=== PATIENT | male | born 1985 | race Two or more races ===

== ENCOUNTER 2021-05-31 17:15 | Emergency (ER) | payer SELFPAY ==
[~2021-05-31] VITALS: Ht 157.5 cm; Wt 54.0 kg
[2021-05-31 18:26] VITALS: BP 139/80
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
== END 2021-05-31 22:18 | disposition home or self-care (01) ==
LOC: ER 17:15
DX: S60.221A Contusion of right hand, initial encounter (principal); M25.512 Pain in left shoulder; F10.10 Alcohol abuse, uncomplicated; Y90.9 Presence of alcohol in blood, level not specified; Y08.89XA Assault by other specified means, initial encounter; Y93.89 Activity, other specified; Y99.8 Other external cause status; Y92.098 Other place in other non-institutional residence as the place of occurrence of the external cause
CPT/HCPCS: 73030; 73130; 99284